=== PATIENT | male | born 1945 | race Caucasian/White ===

== ENCOUNTER → 2019-09-08 | Outpatient (CLI) | payer MEDICARE, BC ==
--- NOTE | 2019-09-08 17:11 | RAD ---
BRAIN W/O CONTRAST History: TIA 3 months ago. Technique: Multiplanar, multi sequential MR imaging was performed of the brain without contrast. Comparison: None Findings: No acute infarct. No intracranial hemorrhage. No mass effect. No hydrocephalus. Brain parenchymal volume loss. Prominence of the lateral and third ventricles likely related to central brain parenchymal volume loss. Cavum septum callosum and vergae. Moderate T2/FLAIR hyperintensities within the hemispheric white matter, most often due to chronic microvascular ischemia. Chronic right zeng radiata/lentiform nucleus infarct. Tiny right cerebellar lacunar infarct. Imaged orbits are unremarkable. Tiny left inferior maxillary sinus mucous retention cyst. Mild ethmoid sinus mucosal thickening. Mastoid air cells demonstrate minimal left fluid. Impression: 1. No acute intracranial abnormality. 2. Chronic right zeng radiata/lentiform nucleus infarct. 3. Moderate and sequela of chronic microvascular ischemia and brain parenchymal volume loss Electronically signed by: Mark Reynoso DO (09/08/2019 5:07 PM) [id number]
== END | disposition home or self-care (01) ==
LOC: MRI 10:24
PROVIDERS: ATTEND Psychiatry & Neurology Neurology
DX: I63.81 Other cerebral infarction due to occlusion or stenosis of small artery (principal); J34.1 Cyst and mucocele of nose and nasal sinus; J34.89 Other specified disorders of nose and nasal sinuses
CPT/HCPCS: 70551

== ENCOUNTER → 2019-10-02 | Outpatient (CLI) | payer MEDICARE, BC ==
--- NOTE | 2019-10-03 12:26 | EEG ---
DATE OF SERVICE: 10/02/2019 EEG NUMBER: . OBJECTIVE: This is a 74-year-old male patient with history of memory loss. EEG was requested to evaluate cerebral activity and rule out seizure. METHODS: Twenty electrodes were applied according to the international 10-20 electrode placement system. EKG monitoring, hyperventilation, intermittent photic stimulation, monopolar and bipolar montages are routinely utilized. The record was obtained on a digital system with video monitoring. FINDINGS: 1. Background: The patient was recorded in the awake, drowsy and brief sleep state. The overall background amplitude is 10-20 microvolts. A posterior dominant rhythm of 8-9 Hz is observed. 2. Abnormalities: No specific epileptiform discharge or electrographic seizure is seen. No focal or diffuse slowing. 3. Activation: Hyperventilation was performed with good efforts and normal response. Intermittent photic stimulation was performed with photic driving. IMPRESSION: This EEG is a normal study for the awake, drowsy, and brief sleep states. No focal, lateralizing, specific epileptiform discharge or electrographic seizure is seen. BONNIE BALDERRAMA MD DR: MG/ashlee JOB#: [id number] / [id number] RICHARD
== END | disposition home or self-care (01) ==
LOC: RT 10:00
PROVIDERS: ATTEND Psychiatry & Neurology Neurology
DX: R41.3 Other amnesia (principal)
CPT/HCPCS: 95816